=== PATIENT | female | born 1985 | race Asian ===

== ENCOUNTER 2016-06-05 01:05 | Emergency (ER) | payer OTHER ==
[~2016-06-05] VITALS: Ht 165.1 cm; Wt 75.8 kg
== END 2016-06-05 02:02 | disposition home or self-care (01) ==
LOC: ED 01:05
DX: T78.40XA Allergy, unspecified, initial encounter (principal)
CPT/HCPCS: 96372; 99282; J2930

== ENCOUNTER 2016-12-20 16:39 | Emergency (ER) | payer OTHER ==
[~2016-12-20] VITALS: Ht 165.1 cm; Wt 79.4 kg
== END 2016-12-20 17:02 | disposition home or self-care (01) ==
LOC: ED 16:39
DX: M25.462 Effusion, left knee (principal)
CPT/HCPCS: 99281

== ENCOUNTER 2019-09-03 17:09 | Emergency (ER) | payer OTHER ==
[~2019-09-03] VITALS: Ht 165.1 cm; Wt 63.5 kg
[2019-09-03 17:14] VITALS: BP 123/77; TEMP 98.9
[2019-09-03 17:50] LABS: PLATELET COUNT 378 K/uL (152-353)
[2019-09-03 17:55] LABS: POTASSIUM 3.7 mmol/L (3.6-5.2)
== END 2019-09-03 18:17 | disposition home or self-care (01) ==
LOC: ED 17:09
PROVIDERS: Family Medicine
DX: A08.4 Viral intestinal infection, unspecified (principal); Z03.818 Encounter for observation for suspected exposure to other biological agents ruled out
CPT/HCPCS: 80053; 81000; 85027; 87086; 87088; 87635; 99283; U0002

== ENCOUNTER 2020-04-29 23:38 | Emergency (ER) | payer OTHER ==
[~2020-04-29] VITALS: Ht 165.1 cm; Wt 63.5 kg
[2020-04-29 23:38] VITALS: TEMP 98.2
[2020-04-30 00:41] VITALS: BP 119/68
== END 2020-04-30 00:43 | disposition home or self-care (01) ==
LOC: ED 23:38
DX: S60.221A Contusion of right hand, initial encounter (principal); W22.8XXA Striking against or struck by other objects, initial encounter; Y92.89 Other specified places as the place of occurrence of the external cause
CPT/HCPCS: 99283